=== PATIENT | female | born 1960 | race Caucasian/White ===

== ENCOUNTER 2021-02-27 07:36 | Outpatient (CLI) | payer OTHER | END 2021-02-27 09:37 | disposition home or self-care (01) | LOC: SONOGRAMA 07:36 | PROVIDERS: ATTEND Internal Medicine Gastroenterology | DX: K82.8 Other specified diseases of gallbladder (principal); R10.11 Right upper quadrant pain; D41.4 Neoplasm of uncertain behavior of bladder ==

== ENCOUNTER 2024-05-10 07:40 | Outpatient (CLI) | payer OTHER | END 2024-05-10 07:41 | disposition home or self-care (01) | LOC: SONOGRAMA 07:40 | PROVIDERS: ATTEND Internal Medicine Gastroenterology | DX: K82.4 Cholesterolosis of gallbladder (principal) ==